=== PATIENT | male | born 1970 | race Caucasian/White ===

== ENCOUNTER 2022-08-03 10:55 | Emergency (ER) | payer BC ==
[~2022-08-03] VITALS: Ht 180.3 cm; Wt 84.8 kg
--- NOTE | 2022-08-03 11:00 | NUR ---
BIBS C/O LEFT SIDED ABDOMINAL PAIN X 2 DAYS,WENT TO [facility] BUT WAS TOLD TO COME HERE SINCE THEY CAN'T DO CT.
--- NOTE | 2022-08-03 11:10 | NUR ---
URINE SAMPLE SENT TO LAB
--- NOTE | 2022-08-03 11:11 | NUR ---
AT BEDSIDE FOR EVAL
--- NOTE | 2022-08-03 11:26 | NUR ---
BLOOD DRAWN AND SENT TO LAB
[2022-08-03] MEDS ORDERED: IV NS 0.9% 250 ML IV ONE (11:28)
[2022-08-03] MEDS ORDERED: IOHEXOL-300 100 ML VIAL IV ONE (11:28)
[2022-08-03 11:35] LABS: BASOPHILS # (AUTO) 0.1 K/uL (0.0-0.2); BASOPHILS % (AUTO) 0.7 % (0.0-2.0); EOSINOPHILS % (AUTO) 0.2 % (0.0-6.0); HEMATOCRIT 46 % (39-51); HEMOGLOBIN 15.4 g/dL (13.5-17.5); LYMPHOCYTES # (AUTO) 1.3 K/uL (0.8-4.8); LYMPHOCYTES % (AUTO) 16.6 % (20.0-44.0); MEAN CORPUSCULAR HGB CONC 34 g/dl (31.0-36.0); MEAN CORPUSCULAR VOLUME 91 fL (80-96); MONOCYTES # (AUTO) 0.6 K/uL (0.1-1.30); MONOCYTES % (AUTO) 8.2 % (2.0-12.0); NEUTROPHILS # (AUTO) 5.9 K/uL (1.8-8.9); NEUTROPHILS % (AUTO) 74.3 % (43.0-81.0); PLATELET COUNT (AUTO) 225 K/uL (150-450); RED BLOOD CELL COUNT(AUTO) 5.04 MIL/uL (4.5-6.0); WHITE BLOOD COUNT (AUTO) 7.9 K/uL (4.3-11.0)
--- NOTE | 2022-08-03 11:50 | NUR ---
PATIENT TAKEN TO CT VIA WHEELCHAIR
[2022-08-03 12:07] LABS: ALBUMIN 4.4 g/dL (3.4-5.0); BILIRUBIN,DIRECT 0.3 mg/dL (0.0-0.2); BILIRUBIN,TOTAL 1.1 mg/dL (0.2-1.0); TOTAL PROTEIN, SERUM 8.1 g/dL (6.4-8.2)
[2022-08-03] MEDS ORDERED: METR500T PO (12:43)
[2022-08-03] MEDS ORDERED: AMOX-427 PO (12:43)
[2022-08-03 12:55] LABS: BILIRUBIN,URINE NEGATIVE (NEGATIVE); COLOR,URINE YELLOW (YELLOW); LEUKOCYTE ESTERASE ,URINE NEGATIVE (NEGATIVE); NITRITE, URINE NEGATIVE (NEGATIVE); PROTEIN,URINE NEGATIVE (NEGATIVE); UGLUCOSE NEGATIVE (NEGATIVE); UROBILINOGEN,URINE 0.2 EU/dL (0.2)
--- NOTE | 2022-08-03 12:55 | NUR ---
IV removed. Catheter intact and site benign. Pressure and 4x4 applied to site. No bleeding noted.Patient discharged to home in stable condition. Written and verbal after care instructions given. Patient verbalizes understanding of instruction.
[2022-08-03 12:57] VITALS: BP 140/98
== END 2022-08-03 12:55 | disposition home or self-care (01) ==
LOC: ER 11:03
DX: K57.32 Diverticulitis of large intestine without perforation or abscess without bleeding (principal); R10.32 Left lower quadrant pain; E78.00 Pure hypercholesterolemia, unspecified; Z87.19 Personal history of other diseases of the digestive system; Z79.899 Other long term (current) drug therapy
CPT/HCPCS: 99285; 74177; 85025; 80048; 83690; 80076; 81003; 36415; J7050; Q9967